=== PATIENT | male | born 1975 | race Caucasian/White ===

== ENCOUNTER 2017-08-13 18:29 | Emergency (ER) | payer OTHER ==
[~2017-08-13] VITALS: Ht 188 cm; Wt 95.3 kg
--- NOTE | 2017-08-13 19:38 | ED UPPER/LOWER EXTREMITY COMPL ---
History of Present Illness General Chief Complaint: Hand or Wrist Injury Stated Complaint: PT HAS A SPLINTER IN THE LT ION Source: patient Exam Limitations: no limitations Vital Signs & Intake/Output Vital Signs & Intake/Output Vital Signs Date Time Temp Pulse Resp B/P B/P Pulse O2 O2 Flow FiO2 Mean Ox Delivery Rate 08/13 2022 97.3 76 16 127/82 97 Room Air 08/13 1850 96.7 83 18 122/79 99 Room Air Allergies Coded Allergies: No Known Allergies (08/13/17) Reconcile Medications Cephalexin (Keflex) 500 MG CAPSULE 1 CAP PO TID Cellulitis Triage Note: PT TO ED FOR A SPLINTER IN HIS L PALM. Triage Nurses Notes Reviewed? yes HPI: 42 yo M presenting with left hand FB. Patient was moving couch yesterday evening , while hand was under couch felt pain in left palmar hand, small punture wound to left proximal palm, ?pulled small piece of wood or metal from wound, concerned for deep retained FB. Associated mild swelling, erythema and pain at puncture site. No associated motor or sensory deficits. Unknown last tetanus, but >5 years ago. Past History Travel History Traveled to [place] past 21 day No Medical History Any Pertinent Medical History? see below for history Neurological: NONE EENT: NONE Cardiovascular: NONE Respiratory: NONE Gastrointestinal: NONE Hepatic: NONE Renal: NONE Musculoskeletal: NONE Psychiatric: NONE Endocrine: NONE Blood Disorders: NONE Cancer(s): NONE Surgical History Surgical History: none Psychosocial History What is your primary language Indian Tobacco Use: Current Daily Use Daily Tobacco Use Amount/Type: => 5 Cigarettes daily ETOH Use: denies use Illicit Drug Use: denies illicit drug use Family History Hx Contributory? Yes Review of Systems Review of Systems Constitutional: Reports: no symptoms. EENTM: Reports: no symptoms. Respiratory: Reports: no symptoms. Cardiovascular: Reports: no symptoms. Gastrointestinal/Abdominal: Reports: no symptoms. Genitourinary: Reports: no symptoms. Musculoskeletal: Reports: no symptoms. Skin: Reports: see HPI, erythema. Neurological/Psychological: Reports: no symptoms. Hematologic/Endocrine: Reports: no symptoms. Immunological: Reports: no symptoms. All Other Systems: Reviewed and Negative Physical Exam Physical Exam General Appearance: well developed/nourished, mild distress Head: atraumatic Eyes: Bilateral: PERRL, EOMI. Ears, Nose, Throat: normal pharynx, normal ENT inspection, hearing grossly normal Neck: normal inspection, supple Cardiovascular/Respiratory: regular rate/rhythm Back: normal inspection Hand Left: evidence of injury Skin: intact, normal color, warm/dry Lymphatic: no anterior cervical shar Comments: Left Hand: Punctate wound to proximal hypothenar eminence without palpable FB, mild associated erythema and swelling, no active bleeding, 2+ radial pulse, no motor or sensory deficits Progress Differential Diagnosis: arterial insufficiency, cellulitis, CHF, compartment syndrome, contusion, dislocation, DVT, fracture, gout, septic arthritis, sprain, tendon injury Plan of Care: Orders Procedure Date/time Status XRY-HAND, 2 Views LEFT 08/13 1943 Active Current Medications Sig/Trudi Start time Last Medication Dose Stop Time Status Admin Cephalexin 500 MG ONCE ONE 08/13 1999 UN[facility]r (Keflex) 08/13 2000 Physician MDM: 42 yo M presenting with left hand FB. VSS, left hand exam as above. DDx: Retained FB, soft tissue injury, cellulitis. Ibuprofen for pain, keflex for ?cellulitis. Left hand XR with linear metallic FB. FB visualized with ultrasound as hyperechoic linear line in subcutaneous tissues, skin sterilized with chlorohexadine, overlying tissues anesthetized with lidocaine, 2 cm linear incision made over FB, forceps visualized on U/S with successfull removal of FB, no residual fragments on ultrasound, laceration repaired with 4-0 ethilon x4. Patient given teaching about wound care, plan to follow-up with PMD in 7-10 days for suture removal. Departure Departure Disposition: HOME OR SELF CARE Condition: Stable Clinical Impression Primary Impression: Foreign body (FB) in soft tissue Referrals: Patient Has No Primary Care Dr (PCP/Family) Additional Instructions: Keep laceration site clean and dry. Take keflex for the next 7 days. Follow uip with your primary care physician in 7-10 days for suture removal. Return to the ED for any signs of infection at laceration site. Return to the ED for any new, worsening, or concerning symptoms. Departure Forms: Customer Survey General Discharge Information Prescriptions: Current Visit Scripts Cephalexin (Keflex) 1 CAP PO TID #30 CAP
[2017-08-13 20:23] VITALS: BP 127/82
--- NOTE | 2017-08-13 20:58 | RADIOLOGY REPORT ---
EXAMINATION: XR HAND, LEFT CLINICAL INFORMATION: Pain, swelling, question foreign body COMPARISON: None TECHNIQUE: Frontal and lateral views of the left hand. FINDINGS: There is a linear, approximately 1 cm likely metallic foreign body within the volar soft tissues of the radial aspect of the left hand. The fragment projects just lateral to the distal carpal row on the frontal radiograph and inferior to the first metacarpal on the lateral view. The remainder of the examination is within normal limits. No fracture or subluxation. IMPRESSION: Metallic foreign body within the soft tissues of the lateral and volar left hand.
[2017-08-13] MEDS ORDERED: KEFLEX500 M1 PO (22:17)
== END 2017-08-13 22:25 ==
LOC: ERH 18:29
DX: S61.442A Puncture wound with foreign body of left hand, initial encounter (principal); W45.8XXA Other foreign body or object entering through skin, initial encounter; Y93.89 Activity, other specified; Y92.9 Unspecified place or not applicable
CPT/HCPCS: 73120-LT; 90471; 90714